=== PATIENT | male | born 1985 | race Caucasian/White ===

== ENCOUNTER 2017-03-04 16:10 | Emergency (ER) | payer MEDICAID ==
--- NOTE | 2017-03-04 17:43 | EDM.PDOC ---
ED HPI GENERAL MEDICAL PROBLEM - General Chief Complaint: Lower Extremity Injury/Pain Stated Complaint: RT KNEE PAIN Time Seen by Provider: 03/04/17 16:45 Source of Information: Reports: Patient History Limitations: Reports: No Limitations - History of Present Illness INITIAL COMMENTS - FREE TEXT/NARRATIVE: 31-year-old male who just moved to the area yesterday was laying on his couch at home and suddenly experienced an intense burning pain in the medial aspect of his right knee. He was not bearing weight or even moving. This has happened in the past apparently and tends to resolve. Onset: Sudden Duration: Hour(s): (Within the last couple hours) Severity: Moderate Associated Symptoms: Reports: No Other Symptoms Right Knee Pain Score (Numeric/FACES): 9 - Related Data Allergies Allergy/AdvReac Type Severity Reaction Status Date / Time latex Allergy Rash Verified 03/04/17 16:36 lorazepam [From Ativan] Allergy Anaphylactic Verified 03/04/17 16:36 Shock Home Meds: Home Meds Escitalopram [Lexapro] 10 mg PO DAILY 03/04/17 [History] hydrOXYzine HCl [Atarax] 50 mg PO Q6H 03/04/17 [History] lamoTRIgine [LaMICtal] 25 mg PO DAILY 03/04/17 [History] levETIRAcetam [Keppra] 1,000 mg PO BID 03/04/17 [History] Past Medical History Neurological History: Reports: Seizure - Past Surgical History Musculoskeletal Surgical History: Reports: Arthroscopic Knee, Shoulder Surgery Social & Family History - Tobacco Use Smoking Status *Q: Current Every Day Smoker Years of Tobacco use: 14 Packs/Tins Daily: 0.5 - Caffeine Use Caffeine Use: Reports: Coffee, Soda, Tea - Recreational Drug Use Recreational Drug Use: No Review of Systems - Review of Systems Review Of Systems: See Below Constitutional: Denies: Fever Respiratory: Reports: No Symptoms Cardiovascular: Reports: No Symptoms Genitourinary: Reports: No Symptoms Skin: Reports: No Symptoms Neurological: Reports: No Symptoms ED EXAM, GENERAL - Physical Exam Exam: See Below Exam Limited By: No Limitations General Appearance: Alert, No Apparent Distress (Acting very uncomfortable) Respiratory/Chest: No Respiratory Distress, Lungs Clear Cardiovascular: Regular Rate, Rhythm Extremities: Other (Exam of the knees show symmetry. On palpation he reacts with tenderness to palpation of the medial right knee, there is no effusion, ligaments or solid, I cannot increased pain with any stressing of the ligaments) Skin Exam: Warm, Dry, Other (Numerous tattoos) Course - Vital Signs Last Recorded V/S: Last Vital Signs Temp 97.3 F 03/04/17 16:38 Pulse 111 H 03/04/17 16:38 Resp 18 03/04/17 16:38 BP 138/85 03/04/17 16:38 Pulse Ox 97 03/04/17 16:38 - Re-Assessments/Exams Free Text/Narrative Re-Assessment/Exam: 03/05/17 08:47 An x-ray of the knee was done which was normal. A three-inch [place] wrap was applied to the knee, encouraged him to take some anti-inflammatory and increase activity as tolerated. He should recheck with orthopedics in 5-10 days if not improving satisfactorily. Departure - Departure Time of Disposition: 17:48 Disposition: Home, Self-Care 01 Condition: Good Clinical Impression: Knee pain, right Qualifiers: Chronicity: acute Qualified Code(s): M25.561 - Pain in right knee - Discharge Information Instructions: Knee Pain Referrals: PCP,None [Primary Care Provider] - Forms: ED Department Discharge Care Plan Goals: Increase activity as tolerated. Wrap for comfort and consider rechecking with orthopedics in the next 1-2 weeks if not improving satisfactorily. Ibuprofen or naproxen should help.
--- NOTE | 2017-03-05 08:21 | CR ---
Knee 3V Rt HISTORY: knee pain FINDINGS: No acute fracture or dislocation is identified. Bony architecture and joint spaces are preserved. S oft tissues are unremarkable. There is no joint effusion. IMPRESSION: No acute right knee abnormality identified.
== END 2017-03-04 17:49 | disposition home or self-care (01) ==
LOC: JP.ED 16:10
DX: M25.561 Pain in right knee (principal); F17.210 Nicotine dependence, cigarettes, uncomplicated; Z79.899 Other long term (current) drug therapy; Z91.040 Latex allergy status
CPT/HCPCS: 73562-26-RT; 73562-RT; 99283; 99284

== ENCOUNTER 2017-04-09 20:36 | Emergency (ER) | payer MEDICAID ==
[2017-04-09] MEDS ORDERED: Ketorolac 60 MG/2 ML SDV IM ONE (21:26)
--- NOTE | 2017-04-09 21:27 | EDM.PDOC ---
ED HPI GENERAL MEDICAL PROBLEM - General Chief Complaint: Upper Extremity Injury/Pain Stated Complaint: L SHOULDER INJURY Time Seen by Provider: 04/09/17 21:26 Source of Information: Reports: Patient History Limitations: Reports: No Limitations - History of Present Illness INITIAL COMMENTS - FREE TEXT/NARRATIVE: pt fell in his apartment over his dog. He landed on his left shoulder. He has alot of pain in the shouilder. He had a rotator cuff repair in the past and then had a second surgery on the shoulder in November. Onset: Today Duration: Hour(s): Location: Reports: Upper Extremity, Left Associated Symptoms: Reports: No Other Symptoms - Related Data Allergies Allergy/AdvReac Type Severity Reaction Status Date / Time diazepam [From Valium] Allergy Anaphylactic Verified 04/02/17 14:05 Shock latex Allergy Rash Verified 03/04/17 16:36 lorazepam [From Ativan] Allergy Anaphylactic Verified 03/04/17 16:36 Shock Home Meds: Home Meds Escitalopram [Lexapro] 10 mg PO DAILY 03/04/17 [History] levETIRAcetam [Keppra] 1,000 mg PO BID 03/04/17 [History] Meclizine HCl 12.5 mg PO BID 04/02/17 [History] Albuterol Sulfate [Ventolin Hfa] 2 puff INH QID PRN 04/09/17 [History] hydrOXYzine HCl [Atarax] 50 mg PO Q6H PRN 04/09/17 [History] lamoTRIgine [Lamotrigine] 50 mg PO BID 04/09/17 [History] Past Medical History Respiratory History: Reports: Asthma Genitourinary History: Reports: Other (See Below) Other Genitourinary History: frequent urination Neurological History: Reports: Seizure Psychiatric History: Reports: PTSD - Infectious Disease History Infectious Disease History: Reports: Chicken Pox - Past Surgical History Other HEENT Surgeries/Procedures: right ear cyst removed Musculoskeletal Surgical History: Reports: Arthroscopic Knee, Shoulder Surgery Social & Family History - Family History Family Medical History: Noncontributory - Tobacco Use Smoking Status *Q: Current Every Day Smoker Years of Tobacco use: 15 Packs/Tins Daily: 0.5 - Caffeine Use Caffeine Use: Reports: Coffee, Soda - Recreational Drug Use Recreational Drug Use: Yes Drug Use in Last 12 Months: Yes Recreational Drug Type: Reports: Marijuana/Hashish Recreational Drug Use Frequency: Daily Review of Systems - Review of Systems Review Of Systems: See Below Constitutional: Reports: No Symptoms Eyes: Reports: No Symptoms Ears: Reports: No Symptoms Nose: Reports: No Symptoms Mouth/Throat: Reports: No Symptoms Respiratory: Reports: No Symptoms Cardiovascular: Reports: No Symptoms GI/Abdominal: Reports: No Symptoms Genitourinary: Reports: No Symptoms Musculoskeletal: Reports: Other (pain in the left shoulder near the deltoid inswertion) Skin: Reports: No Symptoms ED EXAM, GENERAL - Physical Exam Exam: See Below Free Text/Narrative:: pt arrived with pain in the left shoulder. He fell and landed on the shoulder. Exam Limited By: No Limitations General Appearance: Alert, Anxious, Moderate Distress Ears: Normal TMs Extremities: Other (pt is uncomfortable with motion but he has fairly good range of motion. He has no swelling deformity or bruising.) Neurological: Alert, Oriented Course - Vital Signs Last Recorded V/S: Last Vital Signs Temp 37.0 C 04/09/17 21:21 Pulse 81 04/09/17 21:21 Resp 14 04/09/17 21:21 BP 123/77 04/09/17 21:21 Pulse Ox 98 04/09/17 21:21 - Orders/Labs/Meds Orders: Active Orders 24 hr Category Date Time Status Shoulder Comp Lt [CR] Stat Exams 04/09/17 21:25 Ordered Meds: Medications Discontinued Medications Generic Name Dose Route Start Last Admin Trade Name Freq PRN Reason Stop Dose Admin Ketorolac Tromethamine 60 mg 04/09/17 21:26 04/09/17 21:40 Toradol IM 04/09/17 21:27 60 mg ONETIME ONE Administration - Re-Assessments/Exams Free Text/Narrative Re-Assessment/Exam: 04/09/17 22:05 xray of the shoulder was done which revealed no fracture or dislocation Departure - Departure Time of Disposition: 21:54 Disposition: Home, Self-Care 01 Condition: Fair Clinical Impression: Contusion of shoulder, left - Discharge Information Instructions: Contusion Referrals: PCP,None [Primary Care Provider] - Forms: ED Department Discharge Care Plan Goals: AVOID LIFTING AND PULLING, COOL PACK TO THE SITE, TORODOL 10MG Q6H PRN FOR PAIN APPT WITH dR vipin Hart IN 1 WEEK IF NOT BETTER. - My Orders Last 24 Hours: My Active Orders 04/09/17 21:25 Shoulder Comp Lt [CR] Stat - Assessment/Plan Last 24 Hours: My Active Orders 04/09/17 21:25 Shoulder Comp Lt [CR] Stat
--- NOTE | 2017-04-10 08:36 | CR ---
Shoulder Comp Lt INDICATION: fell on shoulder COMPARISON: None FINDINGS: 4 views. No fracture, dislocation, or other acute bony abnormality. Postoperative cardenas es at the glenoid and proximal humerus. IMPRESSION: Nothing acute.
== END 2017-04-09 22:05 | disposition home or self-care (01) ==
LOC: JP.ED 20:36
DX: S40.012A Contusion of left shoulder, initial encounter (principal); J45.909 Unspecified asthma, uncomplicated; F17.210 Nicotine dependence, cigarettes, uncomplicated; Z79.899 Other long term (current) drug therapy; Z88.8 Allergy status to other drugs, medicaments and biological substances; Z91.040 Latex allergy status; W01.0XXA Fall on same level from slipping, tripping and stumbling without subsequent striking against object, initial encounter
CPT/HCPCS: 73030; 96372; 99284; J1885; 99283